=== PATIENT | male | born 1970 | race Caucasian/White ===

== ENCOUNTER 2018-06-13 12:47 | Emergency (ER) | payer OTHER ==
[~2018-06-13] VITALS: Ht 172.7 cm; Wt 122.5 kg
[~2018-06-13 12:47] MED LIST: ATACAND32 MG PO; HUMALOG100 U/ML; SYNTHROID50 MCG PO; VYTORIN 10/40 M1 TAB PO
[2018-06-13] MEDS ORDERED: SKELAXIN800 MG PO (16:49)
[2018-06-13] MEDS ORDERED: KETO10TA2 PO (16:49)
== END 2018-06-13 16:59 | disposition home or self-care (01) ==
LOC: ER 12:47
DX: R07.89 Other chest pain (principal)

== ENCOUNTER 2019-03-24 07:00 | Day surgery (SDC) | payer OTHER ==
[~2019-03-24 07:00] MED LIST changes: +KETO10TA2 PO; +SKELAXIN800 MG PO; +SYNTHROID75 MCG PO; +ZOCOR40 MG PO
== END 2019-03-24 15:15 | disposition home or self-care (01) ==
LOC: CIR.AMB 07:00
DX: M75.01 Adhesive capsulitis of right shoulder (principal); M13.811 Other specified arthritis, right shoulder